=== PATIENT | male | born 1950 | race Native Hawaiian/Other Pacific Islander ===

== ENCOUNTER 2018-09-17 09:26 | Day surgery (SDC) | payer OTHER | END 2018-09-17 11:45 | disposition home or self-care (01) | LOC: OR 09:26 | PROC: 08RJ3JZ Replacement of Right Lens with Synthetic Substitute, Percutaneous Approach (ICD-10-PCS; principal; 2018-09-17) | DX: H25.811 Combined forms of age-related cataract, right eye (principal); H52.221 Regular astigmatism, right eye | CPT/HCPCS: 66984; V2632 ==